=== PATIENT | female | born 1995 | race Caucasian/White ===

== ENCOUNTER 2019-01-15 19:24 | Emergency (ER) | payer OTHER ==
--- NOTE | 2019-01-15 20:14 | ED Physician Documentation ---
PD HPI HEENT - Stated complaint Stated Complaint: DIZZY/NAUSEA - Chief complaint Chief Complaint: Neuro - History obtained from History obtained from: Patient - History of Present Illness Timing - onset: Today (onset when got out of bed of feeling spinning vertigo. Nausea with it. It improves but not gone with holding still. Has some feeling of decreased hearing and pressure in left ear today, and some the past 1-2 days. No fevers nor distinct URI symptoms. No headache. Feeling off balance with walking but feels coordinated with hand movements such as texting on phone.) Timing - duration: Days (1) Timing - details: Abrupt onset, Waxing and waning Location: Left ear, Other (vertigo through the day) Worsens: Position (movement and lying down) Associated symptoms: Congestion (some feeling of ear pressure left), Other (denies new meds, alcohol use, head injury.). No: Fever, Swollen nodes, Headache, Cough Similar symptoms before: Has not had sx before Recently seen: Not recently seen Review of Systems Constitutional: denies: Fever, Myalgias Eyes: denies: Loss of vision, Decreased vision Ears: reports: Loss of hearing (mild on left, feels clogged) Nose: reports: Sinus pressure / pain (mild left frontal). denies: Rhinorrhea / runny nose, Congestion Throat: denies: Sore throat Cardiac: denies: Chest pain / pressure Respiratory: denies: Cough GI: reports: Nausea (when feeling dizzy, better when rested). 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 - Present Medications Home Medications: Ambulatory Orders Medication Instructions Recorded Confirmed Lamotrigine [Lamictal (Green)] 1 ea PO DAILY 12/24/15 05/06/16 Cetirizine [ZyrTEC] 10 mg PO DAILY #15 tablet 01/15/19 Dexamethasone [Decadron] 4 mg PO DAILY #5 tablet 01/15/19 Meclizine [Antivert] 25 mg PO Q6H PRN #30 tablet 01/15/19 - Allergies Allergies/Adverse Reactions: Allergies Allergy/AdvReac Type Severity Reaction Status Date / Time Penicillins Allergy Unknown Verified 05/06/16 20:41 - Social History Does the pt smoke?: No Smoking Status: Never smoker Does the pt drink ETOH?: No Does the pt have substance abuse?: No - Immunizations Immunizations are current?: No Immunizations: No immun - POLST Patient has POLST: No PD ED PE NORMAL - Vitals Vital signs reviewed: Yes - General General: Alert and oriented X 3, No acute distress, Well developed/nourished - HEENT HEENT: PERRL, EOMI (with horizontal nystagmus to the left ), Moist mucous membranes, Pharynx benign. No: Ears normal (right is okay; left with some fluid behind ear but no redness to it.) - Neck Neck: Supple, no meningeal sign, No adenopathy - Cardiac Cardiac: RRR, No murmur - Respiratory Respiratory: Clear bilaterally - Derm Derm: Normal color, Warm and dry - Neuro Neuro: Alert and oriented X 3, chief technical officer 2-12 intact, No motor deficit, No sensory deficit, Normal speech, Other (good hand fine motor movement and normal cere bellar exam with arms/legs. ) Eye Opening: Spontaneous Motor: Obeys Commands Verbal: Oriented GCS Score: 15 Results - Vitals Vitals: Vital Signs - 24 hr 01/15/19 01/15/19 19:27 21:12 Temperature 36.8 C 36.9 C Heart Rate 100 94 Respiratory 16 16 Rate Blood Pressure 132/76 H 125/69 O2 Saturation 100 100 Oxygen O2 Source Room air - Labs Labs: Laboratory Tests 01/15/19 01/15/19 20:33 20:33 WBC 8.2 RBC 4.59 Hgb 13.0 Hct 39.5 MCV 86.0 MCH 28.4 MCHC 33.1 RDW 13.6 Plt Count 240 MPV 8.6 Neut # (Auto) 5.0 Lymph # (Auto) 2.4 Wilkin # (Auto) 0.7 Eos # (Auto) 0.1 Baso # (Auto) 0.0 Absolute Nucleated RBC 0.00 Nucleated RBC % 0.0 Sodium 138 Potassium 3.6 Chloride 101 Carbon Dioxide 27 Anion Gap 10.0 BUN 9 Creatinine 0.6 Estimated GFR (MDRD) 124 Glucose 97 Calcium 9.2 Magnesium 1.8 Total Bilirubin 0.3 AST 17 ALT 18 Alkaline Phosphatase 100 Total Protein 7.7 Albumin 4.3 Globulin 3.4 Albumin/Globulin Ratio 1.3 Lipase 29 PD MEDICAL DECISION MAKING - ED course Complexity details: considered differential (sounds like positional/peripheral vertigo, but with fluid/symptoms to left ear, so presume some allergies or such. Does not appear as ear infection. No focal symptoms otherwise, and is able to coordinate movements of hands well, so not seeming cerebellar per se. ), d/w patient Departure - Departure Disposition: 01 Home, Self Care Clinical Impression: Vertigo Acute labyrinthitis Qualifiers: Laterality: left Qualified Code(s): H83.02 - Labyrinthitis, left ear Condition: Stable Record reviewed to determine appropriate education?: Yes Instructions: ED Labyrinthitis Follow-Up: [facility] [Provider Group] Prescriptions: Cetirizine [ZyrTEC] 10 mg PO DAILY #15 tablet Dexamethasone [Decadron] 4 mg PO DAILY #5 tablet Meclizine [Antivert] 25 mg PO Q6H PRN #30 tablet PRN Reason: Vertigo Comments: Your blood count and electrolytes are good. I would presume this is an inner ear inflammation causing the dizziness. I would have you use some Decadron steroid anti-inflammatory daily for the next several days and cetirizine antihistamine daily for a week or so. This would try to reduce the inflammation and pressure in the inner ear to reduce the dizziness. Use meclizine as needed for the symptoms of the dizziness to lessen it. Recheck if not improving over the next couple of days return sooner if worsening. I do not think it is a bacterial infection and so at do not think antibiotics would be helpful. Continue usual medication. Discharge Date/Time: 01/15/19 21:26
[2019-01-15] MEDS ORDERED: DEXAMETHASONE 10 MG/ML VIAL PO STA (20:26)
[2019-01-15] MEDS ORDERED: CHERRY SYRUP 10 ML UDC PO ONE (20:26)
[2019-01-15] MEDS ORDERED: CETIRIZINE 10 MG TABLET PO STA (20:26)
[2019-01-15] MEDS ORDERED: MECLIZINE 12.5 MG TABLET PO STA (20:26)
[2019-01-15 20:40] LABS: BASOPHILS % (AUTO) 0.4 %; EOSINOPHILS # (AUTO) 0.1 10^3/uL (0.0-0.7); EOSINOPHILS % (AUTO) 0.9 %; LYMPHOCYTES # (AUTO) 2.4 10^3/uL (1.5-3.5); LYMPHOCYTES % (AUTO) 28.9 %; MEAN CORPUSCULAR HEMOGLOBIN 28.4 pg (27.0-31.0); MEAN CORPUSCULAR HGB CONC 33.1 g/dL (32.0-36.0); MEAN PLATELET VOLUME 8.6 fL (7.9-10.8); MONOCYTES # (AUTO) 0.7 10^3/uL (0.0-1.0); MONOCYTES % (AUTO) 8.5 %; NEUTROPHILS % (AUTO) 61.3 %; PLT - PLATELET COUNT 240 10^3/uL (130-450); RED BLOOD COUNT 4.59 10^6/uL (4.20-5.40); RED CELL DISTRIBUTION WIDTH 13.6 % (12.0-15.0); WHITE BLOOD COUNT 8.2 x10^3/uL (4.8-10.8)
[2019-01-15 20:51] LABS: ALBUMIN 4.3 g/dL (3.2-5.5); ALBUMIN/GLOBULIN RATIO 1.3 (1.0-2.2); BILIRUBIN,TOTAL 0.3 mg/dL (0.2-1.0); CALCIUM 9.2 mg/dL (8.5-10.3); CREATININE 0.6 mg/dL (0.4-1.0); MAGNESIUM 1.8 mg/dL (1.7-2.8); TOTAL PROTEIN 7.7 g/dL (6.7-8.2)
[2019-01-15 21:13] VITALS: BP 125/69
== END 2019-01-15 21:26 | disposition home or self-care (01) ==
LOC: ED 19:24
DX: H83.02 Labyrinthitis, left ear (principal); R42 Dizziness and giddiness
CPT/HCPCS: 36415; 80053; 83690; 83735; 85025; 99283; A9270

== ENCOUNTER 2019-02-22 18:12 | Emergency (ER) | payer OTHER ==
--- NOTE | 2019-02-22 18:52 | ED Physician Documentation ---
PD HPI CHEST PAIN - Stated complaint Stated Complaint: CHEST PAIN/SOA - Chief complaint Chief Complaint: Resp - History obtained from History obtained from: Patient - History of Present Illness Timing - onset: Today (She had a sore throat yesterday and lost her voice. She also has a cough that is nonproductive. No fevers. She saw her doctor and was told she has laryngitis. Throat is better, but today she has had chest tightness with shortness of breath. No pedal edema or calf pain. She is on control pills.) Review of Systems Constitutional: denies: Fever, Chills Nose: reports: Rhinorrhea / runny nose Throat: reports: Sore throat Cardiac: reports: Chest pain / pressure. denies: Palpitations, Pedal edema, Calf pain Respiratory: reports: Dyspnea, Cough. 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 - Present Medications Home Medications: Ambulatory Orders Medication Instructions Recorded Confirmed Lamotrigine [Lamictal (Green)] 1 ea PO DAILY 12/24/15 05/06/16 Cetirizine [ZyrTEC] 10 mg PO DAILY #15 tablet 01/15/19 Meclizine [Antivert] 25 mg PO Q6H PRN #30 tablet 01/15/19 dexAMETHasone [Decadron] 4 mg PO DAILY #5 tablet 01/15/19 Albuterol Sulf [Ventolin Hfa 1 - 2 puffs INH Q4HR PRN #1 inhaler 02/22/19 Inhaler] Guaifenesin/Pseudoephedrne HCl 1 each PO BID PRN #20 tab.er.12h 02/22/19 [Mucinex D ER 600-60 mg Tablet] - Allergies Allergies/Adverse Reactions: Allergies Allergy/AdvReac Type Severity Reaction Status Date / Time Penicillins Allergy Unknown Verified 02/22/19 18:27 - Social History Does the pt smoke?: No Smoking Status: Never smoker Does the pt drink ETOH?: No Does the pt have substance abuse?: No - Immunizations Immunizations are current?: No Immunizations: No immun - POLST Patient has POLST: No PD ED PE NORMAL - Vitals Vital signs reviewed: Yes - General General: Alert and oriented X 3, No acute distress - HEENT HEENT: Pharynx benign - Neck Neck: Supple, no meningeal sign, No bony TTP - Cardiac Cardiac: RRR, No murmur - Respiratory Respiratory: No respiratory distress, Other (Slightly diminished throughout without focal findings) - Abdomen Abdomen: Non tender - Derm Derm: Normal color, Warm and dry - Extremities Extremities: No edema, No calf tenderness / cord - Neuro Neuro: Alert and oriented X 3, Normal speech Results - Vitals Vitals: Vital Signs - 24 hr 02/22/19 18:23 Temperature 36.1 C L Heart Rate 78 Respiratory 16 Rate Blood Pressure 113/64 O2 Saturation 100 Oxygen O2 Source Room air - EKG (time done) 1844 Rate: Rate (enter#) (94) Rhythm: NSR [place]: Normal Intervals: Normal [place] QRS: Normal Ischemia: Normal ST segments Computer interpretation: Agree with computer - Labs Labs: Laboratory Tests 02/22/19 02/22/19 19:29 19:29 D-Dimer 358.7 H Troponin I < 0.04 - Rads (name of study) 2v chest Radiology: EMP read contemporaneously (NAD) PD MEDICAL DECISION MAKING - ED course ED course: 23-year-old woman with signs and symptoms most consistent with a viral bronchitis. EKG, chest x-ray, troponin and d-dimer were all negative. Note that our lab has a inordinately low cut off of the d-dimer, most authorities use 500 as a reasonable cut off for d-dimer. Departure - Departure Disposition: 01 Home, Self Care Clinical Impression: Acute viral bronchitis Chest pain Qualifiers: Chest pain type: unspecified Qualified Code(s): R07.9 - Chest pain, unspecified Condition: Good Record reviewed to determine appropriate education?: Yes Instructions: ED Upper Resp Infec No Abx Tx Prescriptions: Albuterol Sulf [Ventolin Hfa Inhaler] 1 - 2 puffs INH Q4HR PRN #1 inhaler PRN Reason: Shortness Of Air/Wheezing Guaifenesin/Pseudoephedrne HCl [Mucinex D ER 600-60 mg Tablet] 1 each PO BID PRN #20 tab.er.12h PRN Reason: congestion Comments: Call your doctor to arrange a follow-up appointment, make the next available appointment. In the interim, return anytime if worse or if new symptoms develop.
--- NOTE | 2019-02-22 19:17 | XRAY Report ---
Reason: shortness of breath, chest tightness, cough Procedure Date: 02/22/2019 Accession Number: [id number] / [id number] Procedure: XR - Chest 2 View X-Ray CPT Code: 11919 FULL RESULT: EXAM: CHEST RADIOGRAPHY EXAM DATE: 02/22/2019 07:01 PM. CLINICAL HISTORY: Shortness of breath, chest tightness, cough. COMPARISON: CHEST 1 VIEW 01/30/2016 12:57 PM. TECHNIQUE: 2 views. FINDINGS: Lungs/Pleura: No focal opacities evident. No pleural effusion. No pneumothorax. Normal volumes. Mediastinum: Heart and mediastinal contours are unremarkable. Other: None. IMPRESSION: Normal 2-view chest radiography. RADIA
[2019-02-22 20:24] VITALS: BP 123/69
== END 2019-02-22 20:24 | disposition home or self-care (01) ==
LOC: ED 18:12
DX: J20.8 Acute bronchitis due to other specified organisms (principal); J04.0 Acute laryngitis; Z79.3 Long term (current) use of hormonal contraceptives
CPT/HCPCS: 36415; 71046; 84484; 85379; 93005; 99283; 99284

== ENCOUNTER 2019-07-27 16:19 | Emergency (ER) | payer MEDICAID, OTHER ==
--- NOTE | 2019-07-27 17:59 | ED Physician Documentation ---
PD HPI SKIN - Stated complaint Stated Complaint: ALLERGIC REACTION CHEST, NECK, BACK - Chief complaint Chief Complaint: Allergic Rx - History obtained from History obtained from: Patient - History of Present Illness Timing - onset: Last night Timing - details: Abrupt onset Location: Face, Neck, Chest, Abdomen, Back Quality / character: Itchy, Burning. No: Swelling, Draining Improved by: Benadryl Associated symptoms: No: Fever, Dyspnea, N/V/D Recently seen: Not recently seen - Additional information Additional information: This is a 23-year-old presents with complaints that she got into an Epson salt bath scented with lavender last night and immediately after getting out she felt just irritated, burning on her skin and then she broke out in a rash on her chest her back underneath her breasts and on her neck she thinks she is having allergic reaction. She went to bed last night not thinking that much of it but then it was much worse this morning. She took a Benadryl although it did was make her sleepy and she still very itchy. Denies shortness of breath, fever, nausea or vomiting. The patient just finished a dose of clindamycin that was prescribed after her wisdom tooth removal. She still taking ibuprofen at thousand milligrams a day but says this is not cutting the pain so she called her dentist today who told her to come to the emergency department for pain medications. Her extraction was on 18 July. 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 - Present Medications Home Medications: Ambulatory Orders Medication Instructions Recorded Confirmed Lamotrigine [Lamictal (Green)] 1 ea PO DAILY 12/24/15 05/06/16 Cetirizine [ZyrTEC] 10 mg PO DAILY #15 tablet 01/15/19 Meclizine [Antivert] 25 mg PO Q6H PRN #30 tablet 01/15/19 dexAMETHasone [Decadron] 4 mg PO DAILY #5 tablet 01/15/19 Albuterol Sulf [Ventolin Hfa 1 - 2 puffs INH Q4HR PRN #1 inhaler 02/22/19 Inhaler] Guaifenesin/Pseudoephedrne HCl 1 each PO BID PRN #20 tab.er.12h 02/22/19 [Mucinex D ER 600-60 mg Tablet] - Allergies Allergies/Adverse Reactions: Allergies Allergy/AdvReac Type Severity Reaction Status Date / Time Penicillins Allergy Unknown Verified 07/27/19 16:25 - Social History Does the pt smoke?: No Smoking Status: Never smoker Does the pt drink ETOH?: No Does the pt have substance abuse?: No - Immunizations Immunizations are current?: No Immunizations: No immun - POLST Patient has POLST: No PD ED PE NORMAL - Vitals Vital signs reviewed: Yes - General General: Alert and oriented X 3, No acute distress, Well developed/nourished - HEENT HEENT: Atraumatic, PERRL, Moist mucous membranes, Other (There is no facial swelling and no erythema or swelling around the sockets of the wisdom teeth.) - Neck Neck: Supple, no meningeal sign, No adenopathy - Respiratory Respiratory: No respiratory distress, Clear bilaterally - Derm Derm: Normal color, Other (There are scattered pinpoint areas of erythema some of which have coalesced on her face neck in the intertriginous zone under her breasts and on her upper back and upper chest. There is no true hives.) - Neuro Neuro: Alert and oriented X 3, Normal speech - Psych Psych: Normal mood, Normal affect Results - Vitals Vitals: Vital Signs - 24 hr 07/27/19 07/27/19 16:23 18:31 Temperature 36.8 C Heart Rate 101 H 98 Respiratory 16 18 Rate Blood Pressure 136/73 H 137/68 H O2 Saturation 100 100 Oxygen O2 Source Room air PD MEDICAL DECISION MAKING - ED course Complexity details: d/w patient ED course: I am not sure if this is more chemical irritant from the Epson salt with lavender in it or it could be reaction to the clindamycin. She is to finish the clindamycin at this point. I have encouraged her to take Benadryl [id number] and adding Pepcid to help with the itching. She was offered steroids which she has declined. She requested pain medications for her dental pain status post extraction 10 days ago. I did not not feel comfortable prescribing narcotics but did give her a hydrocodone here. I explained to her that she should follow-up with her dentist if she requires a further prescription. Return if the rash is worsening, she is short of breath vomiting or other problems. Departure - Departure Disposition: Home, Self Care Clinical Impression: Contact dermatitis Qualifiers: Contact dermatitis type: unspecified Contact dermatitis trigger: other trigger Qualified Code(s): L25.8 - Unspecified contact dermatitis due to other agents Condition: Good Instructions: ED Dermatitis Contact Follow-Up: [facility] [Provider Group] Comments: Continue to take Benadryl 1 tablet every 4 hours. Add Pepcid 20 mg twice a day to help with the itching. Avoid sitting and at this Epson salt bath again. Follow-up with your dentist if he continued to have pain for further pain management. Return if the rash is worsening, you develop difficulty breathing or are vomiting.
[2019-07-27] MEDS ORDERED: HYDROcod/ACETAM 5/325 MG TABLET PO STA (18:25)
[2019-07-27 18:32] VITALS: BP 137/68
== END 2019-07-27 18:45 | disposition home or self-care (01) ==
LOC: ED 16:19
DX: L25.8 Unspecified contact dermatitis due to other agents (principal)
CPT/HCPCS: 99282; A9270

== ENCOUNTER 2019-08-08 14:52 | Emergency (ER) | payer MEDICAID ==
--- NOTE | 2019-08-08 15:25 | ED Physician Documentation ---
PD HPI SKIN - Stated complaint Stated Complaint: ALLERGIC REACTION,FALL LOWER BACK PX - Chief complaint Chief Complaint: Wound - Additional information Additional information: This is a 23-year-old female presents with a rash. Patient was on clindamycin due to a dental infection in late June, she finished 7 days of clindamycin, and once completing this in the end of June she began developing some red spots. This started on her neck and spread throughout her body. They are somewhat itchy, raised and appears somewhat flaky. She was put on dexamethasone and that temporarily improve the symptoms on her face but after she stopped this 5 daysShe had recurrence of her rash. She denies any lesions in her mouth, genitals, or eyes. No fever, no chills. She is not taking any antibiotics Currently. She denies any changes to soaps or detergents in the house. No history of allergies or autoimmune conditions As a secondary minor complaint pt states she tripped earlier and has some soreness on the side of her lateral left back. No LOC. 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 - Present Medications Home Medications: Ambulatory Orders Medication Instructions Recorded Confirmed Lamotrigine [Lamictal (Green)] 1 ea PO DAILY 12/24/15 05/06/16 Cetirizine [ZyrTEC] 10 mg PO DAILY #15 tablet 01/15/19 Meclizine [Antivert] 25 mg PO Q6H PRN #30 tablet 01/15/19 dexAMETHasone [Decadron] 4 mg PO DAILY #5 tablet 01/15/19 Albuterol Sulf [Ventolin Hfa 1 - 2 puffs INH Q4HR PRN #1 inhaler 02/22/19 Inhaler] Guaifenesin/Pseudoephedrne HCl 1 each PO BID PRN #20 tab.er.12h 02/22/19 [Mucinex D ER 600-60 mg Tablet] dexAMETHasone [Decadron] 4 mg PO DAILY #5 tablet 07/31/19 hydrOXYzine HCl [Hydroxyzine HCl] 50 mg PO Q8H PRN #12 tablet 07/31/19 Clobetasol 0.05% Oint [Temovate 1 applic TOP BID 14 Days #1 tube 08/08/19 0.05% Oint] Hydrocortisone 1 applic TP BID #1 tube 08/08/19 - Allergies Allergies/Adverse Reactions: Allergies Allergy/AdvReac Type Severity Reaction Status Date / Time clindamycin Allergy Itching Verified 08/08/19 14:57 Penicillins Allergy Unknown Verified 08/08/19 14:57 - Social History Does the pt smoke?: No Smoking Status: Never smoker Does the pt drink ETOH?: No Does the pt have substance abuse?: No - Immunizations Immunizations are current?: No Immunizations: No immun - POLST Patient has POLST: No PD ED PE NORMAL - Vitals Vital signs reviewed: Yes - General General: Alert and oriented X 3, No acute distress - HEENT HEENT: PERRL, Other (No mucosal lesions) - Neck Neck: Supple, no meningeal sign - Cardiac Cardiac: RRR - Respiratory Respiratory: No respiratory distress - Abdomen Abdomen: Non distended - Derm Derm: Warm and dry, Other (Erythematous papules and plaques that approach confluence in places and are scattered diffusely. There is scaling/flaking over them. 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 No red flags for more dangerous cause - no fever, mucous membrane involvement, abdominal pain, etc. It would be very atypical for an allergic reaction both in phenotype and because it has worsened for weeks despite stopping the offending agent. I prescribed topical steroids, recommended PCP and derm follow up, and reviewed return precautions. Regarding her back discomfort, she has no external signs of trauma, no midline back tenderness, and very mild tenderness in the lateral paraspinous musculature. She states that she would not have come in for this pain unless she also had wanted her rash checked. I reviewed supportive care and she was discharged home. Departure - Departure Disposition: Home, Self Care Clinical Impression: Guttate psoriasis Condition: Good Instructions: ED Psoriasis Prescriptions: Clobetasol 0.05% Oint [Temovate 0.05% Oint] 1 applic TOP BID 14 Days #1 tube Hydrocortisone 1 applic TP BID #1 tube Comments: You appear to have psoriasis. 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 You may use the topical steroids in the meantime. If you are developing fever, signs of infection, or other new concerning symptoms return to the emergency department. Discharge Date/Time: 08/08/19 15:55
[2019-08-08] MEDS ORDERED: ACETAMINOPHEN 325 MG TABLET PO STA (15:49)
[2019-08-08 15:56] VITALS: BP 130/80
== END 2019-08-08 15:55 | disposition home or self-care (01) ==
LOC: ED 14:52
DX: L40.4 Guttate psoriasis (principal); M54.5 Low back pain; W10.9XXA Fall (on) (from) unspecified stairs and steps, initial encounter
CPT/HCPCS: 99282; 99284; A9270

== ENCOUNTER 2019-10-31 14:00 | Emergency (ER) | payer MEDICAID ==
[2019-10-31 14:11] VITALS: BP 139/78
--- NOTE | 2019-10-31 14:25 | ED Physician Documentation ---
PD HPI URI - Stated complaint Stated Complaint: SOA/COUGH - Chief complaint Chief Complaint: Resp - History obtained from History obtained from: Patient - History of Present Illness Timing - onset: Other (She is been sick for about 10 days with productive cough, mostly green sputum with blood-tinged. Now short of breath over the last day. No fevers. No history of pulmonary disease such as asthma or pneumonia. 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 OPERATOR: section - Present Medications Home Medications: Ambulatory Orders Medication Instructions Recorded Confirmed Lamotrigine [Lamictal (Green)] 1 ea PO DAILY 12/24/15 05/06/16 Cetirizine [ZyrTEC] 10 mg PO DAILY #15 tablet 01/15/19 Meclizine [Antivert] 25 mg PO Q6H PRN #30 tablet 01/15/19 dexAMETHasone [Decadron] 4 mg PO DAILY #5 tablet 01/15/19 Albuterol Sulf [Ventolin Hfa 1 - 2 puffs INH Q4HR PRN #1 inhaler 02/22/19 Inhaler] Guaifenesin/Pseudoephedrne HCl 1 each PO BID PRN #20 tab.er.12h 02/22/19 [Mucinex D ER 600-60 mg Tablet] dexAMETHasone [Decadron] 4 mg PO DAILY #5 tablet 07/31/19 hydrOXYzine HCL [Hydroxyzine HCl] 50 mg PO Q8H PRN #12 tablet 07/31/19 Clobetasol 0.05% Oint [Temovate 1 applic TOP BID 14 Days #1 tube 08/08/19 0.05% Oint] Hydrocortisone 1 applic TP BID #1 tube 08/08/19 Albuterol Sulf [Ventolin Hfa 1 - 2 puffs INH Q4HR PRN #1 inhaler 10/31/19 Inhaler] Doxycycline Hyclate 100 mg PO BID #14 capsule 10/31/19 Meloxicam [Mobic] 7.5 mg PO BID PRN #20 tablet 10/31/19 guaiFENesin/CODEINE [Robitussin AC] 5 - 10 ml PO Q6H PRN #120 ml 10/31/19 - Allergies Allergies/Adverse Reactions: Allergies Allergy/AdvReac Type Severity Reaction Status Date / Time clindamycin Allergy Itching Verified 10/31/19 14:11 Penicillins Allergy Unknown Verified 10/31/19 14:11 - Social History Does the pt smoke?: No Smoking Status: Never smoker Does the pt drink ETOH?: No Does the pt have substance abuse?: No - Immunizations Immunizations are current?: No Immunizations: No immun - POLST Patient has POLST: No PD ED PE NORMAL - Vitals Vital signs reviewed: Yes - General General: Alert and oriented X 3, No acute distress - HEENT HEENT: PERRL, EOMI, Dentition benign - Neck Neck: Supple, no meningeal sign, No bony TTP - Cardiac Cardiac: RRR, No murmur - Respiratory Respiratory: No respiratory distress, Other (Mildly wheezy and rhonchorous throughout; Slightly diminished at the right base) - Abdomen Abdomen: Non tender - Derm Derm: Normal color, Warm and dry, No rash - Extremities Extremities: No deformity, No tenderness to palpate, No edema, No calf tenderness / cord - Neuro Neuro: Alert and oriented X 3, Normal speech Results - Vitals Vitals: Vital Signs - 24 hr 10/31/19 14:08 Temperature 36.7 C Heart Rate 81 Respiratory 17 Rate Blood Pressure 139/78 H O2 Saturation 99 Oxygen O2 Source Room air PD MEDICAL DECISION MAKING - ED course ED course: 23-year-old woman with bronchitis, potentially a right basilar pneumonia Departure - Departure Disposition: 01 Home, Self Care Clinical Impression: Bronchitis Pneumonia Qualifiers: Laterality: right Lung location: lower lobe of lung Condition: Good Record reviewed to determine appropriate education?: Yes Instructions: ED Bronchitis Asthmatic Prescriptions: Albuterol Sulf [Ventolin Hfa Inhaler] 1 - 2 puffs INH Q4HR PRN #1 inhaler PRN Reason: Shortness Of Air/Wheezing Doxycycline Hyclate 100 mg PO BID #14 capsule guaiFENesin/CODEINE [Robitussin AC] 5 - 10 ml PO Q6H PRN #120 ml PRN Reason: Cough Meloxicam [Mobic] 7.5 mg PO BID PRN #20 tablet PRN Reason: Pain Comments: I sent the prescriptions electronically to [facility] in [place]. Follow-up w ith your doctor in 1 week if not better. Return for new or worsening symptoms. Your blood pressure was elevated today on check into the emergency department. This does not mean that you have hypertension, it is a common phenomenon to come to the emergency department and have elevated blood pressure. I recommend that you see your primary care physician within the week to have it rechecked when you are feeling better.
== END 2019-10-31 14:35 | disposition home or self-care (01) ==
LOC: ED 14:00
DX: J18.9 Pneumonia, unspecified organism (principal); J40 Bronchitis, not specified as acute or chronic; R03.0 Elevated blood-pressure reading, without diagnosis of hypertension
CPT/HCPCS: 99283; 99284

== ENCOUNTER 2019-11-10 21:47 | Emergency (ER) | payer MEDICAID ==
[2019-11-10 21:54] VITALS: BP 125/86
== END 2019-11-11 00:57 | disposition left against medical advice (07) ==
LOC: ED 21:47
DX: Z53.21 Procedure and treatment not carried out due to patient leaving prior to being seen by health care provider (principal)

== ENCOUNTER 2019-11-16 16:54 | Emergency (ER) | payer MEDICAID ==
--- NOTE | 2019-11-16 18:30 | ED Physician Documentation ---
PD HPI CHEST PAIN - Stated complaint Stated Complaint: LT RIB PX - Chief complaint Chief Complaint: General - History obtained from History obtained from: Patient - History of Present Illness Timing - onset: How many weeks ago (1) Timing - onset during: Light activity, Other (coughing hard and repetitively) Timing - duration: Weeks (1) Timing - details: Gradual onset (Has had a cough and "bronchitis" symptoms for about a week and had onset of the pain in the left lateral ribs. This has persisted you have another cough is lessened. Hurts for movement and deep breathing. No fevers), Still present Quality: Aching, Sharp. No: Pressure, Tightness Location: Left chest (lateral lower ribs area) Radiation: No: Back, Abdominal Associated symptoms: Cough. 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) HEENT: None Psych: Depression, Anxiety, Panic attacks Musculoskeletal: Chronic back pain Derm: None - Past Surgical History Past 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 - Present Medications Home Medications: Ambulatory Orders Medication Instructions Recorded Confirmed Lamotrigine [Lamictal (Green)] 1 ea PO DAILY 12/24/15 05/06/16 hydrOXYzine HCL [Hydroxyzine HCl] 50 mg PO Q8H PRN #12 tablet 07/31/19 Hydrocortisone 1 applic TP BID #1 tube 08/08/19 FLUoxetine [PROzac] 40 mg PO DAILY 11/16/19 11/16/19 Guanfacine HCl 1 mg PO 11/16/19 Hydrocodone/Acetaminophen 1 each PO Q6H PRN #18 tablet 11/16/19 [Hydrocodon-Acetaminophen 5-325] Naproxen 500 mg PO BID #20 tablet 11/16/19 dexAMETHasone [Decadron] 4 mg PO DAILY #5 tablet 11/16/19 - Allergies Allergies/Adverse Reactions: Allergies Allergy/AdvReac Type Severity Reaction Status Date / Time clindamycin Allergy Itching Verified 11/16/19 17:24 Penicillins Allergy Unknown Verified 11/16/19 17:24 - Social History Does the pt smoke?: No Smoking Status: Never smoker Does the pt drink ETOH?: No Does the pt have substance abuse?: No - Immunizations Immunizations are current?: No Immunizations: No immun - POLST Patient has POLST: No PD ED PE NORMAL - Vitals Vital signs reviewed: Yes - General General: Alert and oriented X 3, Well developed/nourished - HEENT HEENT: Ears normal, Moist mucous membranes, Pharynx benign - Neck Neck: Supple, no meningeal sign, No adenopathy - Cardiac Cardiac: RRR, No murmur, Other (Tender in the lower left midaxillary line approximately ribs 9 or 10. No obvious deformity. No crepitance felt in the area.) - Respiratory Respiratory: Clear bilaterally - Back Back: No CVA TTP, No spinal TTP - Derm Derm: Normal color, Warm and dry, No rash - Extremities Extremities: No tenderness to palpate, Normal ROM s pain, No edema, No calf tenderness / cord - Neuro Neuro: Alert and oriented X 3, No motor deficit, Normal speech Results - Vitals Vitals: Vital Signs - 24 hr 11/16/19 11/16/19 17:21 19:26 Temperature 37.2 C Heart Rate 100 98 Respiratory 16 18 Rate Blood Pressure 128/71 136/80 H O2 Saturation 99 100 Oxygen O2 Source Room air - Rads (name of study) chest xray Radiology: Prelim report reviewed (no acute process), See rad report PD MEDICAL DECISION MAKING - ED course Complexity details: considered differential (Has had a cough and "bronchitis" symptoms for about a week and had onset of the pain in the left lateral ribs. This has persisted you have another cough is lessened. Hurts for movement and deep breathing. No fevers), d/w patient ED course: Seems like musculoskeletal chest wall pain from the previous cough she had had. Chest x-ray is clear with any signs of effusion nor infiltrate nor rib fracture. Departure - Departure Disposition: 01 Home, Self Care Clinical Impression: Left-sided chest wall pain Condition: Stable Record reviewed to determine appropriate education?: Yes Instructions: ED Strain Chest Wall Prescriptions: dexAMETHasone [Decadron] 4 mg PO DAILY #5 tablet Hydrocodone/Acetaminophen [Hydrocodon-Acetaminophen 5-325] 1 each PO Q6H PRN #18 tablet PRN Reason: pain Naproxen 500 mg PO BID #20 tablet Comments: Your x-ray appears normal without any signs of rib injury nor problems such as pneumonia or fluid. I presume its muscular pain that is hurting precipitated by the cough and you it had. Use anti-inflammatories of naproxen and Decadron to help with the process of it. Add Tylenol or hydrocodone as needed for pain. Stay well-hydrated. Recheck if not improving well over the next several days and resolved by a week. Return if worse symptoms. Discharge Date/Time: 11/16/19 19:58
[2019-11-16] MEDS ORDERED: HYDROcod/ACETAM 5/325 MG TABLET PO STA (18:46)
[2019-11-16 19:27] VITALS: BP 136/80
--- NOTE | 2019-11-16 20:01 | XRAY Report ---
Reason: left rib pain/chest pain; coughing Procedure Date: 11/16/2019 Accession Number: [id number] / [id number] Procedure: XR - Chest 2 View X-Ray CPT Code: 47889 Final Report FULL RESULT: EXAM: CHEST RADIOGRAPHY EXAM DATE: 11/16/2019 07:19 PM. CLINICAL HISTORY: Left rib pain/chest pain; coughing. COMPARISON: CHEST 2 VIEW 02/22/2019 6:52 PM. TECHNIQUE: 2 views. FINDINGS: LUNGS: The lungs are clear. PLEURA: No significant pleural effusion. No clinically significant pneumothorax. MEDIASTINUM: The cardiomediastinal silhouette is unremarkable. BONES: No suspicious osseous lesions. IMPRESSION: No acute cardiopulmonary abnormality. RADIA
== END 2019-11-16 19:58 | disposition home or self-care (01) ==
LOC: ED 16:54
DX: R07.89 Other chest pain (principal); R05 Cough
CPT/HCPCS: 71046; 99283; 99284; A9270

== ENCOUNTER 2020-01-02 08:56 | Emergency (ER) | payer MEDICAID ==
[2020-01-02] MEDS ORDERED: HYDROcod/ACETAM 5/325 MG TABLET PO STA (09:16)
--- NOTE | 2020-01-02 09:18 | ED Physician Documentation ---
History of Present Illness - Stated complaint Stated Complaint: L SIDE PX - Chief complaint Chief Complaint: General - History obtained from History obtained from: Patient (24-year-old woman had bronchitis a couple of months ago, developed some pleuritic pain at that time. She is kind of had frequent problems with this, and over the last 4 days has had increased nonproductive cough, mild shortness of breath. No fevers. She denies leg sw elling or pedal edema or calf pain. No recent travel. This morning her pain which is in the left ribs got much worse while sneezing.) Review of Systems Constitutional: denies: Fever, Chills Cardiac: reports: Chest pain / pressure. denies: Palpitations, Pedal edema, Calf pain Respiratory: reports: Cough. 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: section - Present Medications Home Medications: Ambulatory Orders Medication Instructions Recorded Confirmed Lamotrigine [Lamictal (Green)] 1 ea PO DAILY 12/24/15 05/06/16 hydrOXYzine HCL [Hydroxyzine HCl] 50 mg PO Q8H PRN #12 tablet 07/31/19 Hydrocortisone 1 applic TP BID #1 tube 08/08/19 FLUoxetine [PROzac] 40 mg PO DAILY 11/16/19 11/16/19 Guanfacine HCl 1 mg PO 11/16/19 Hydrocodone/Acetaminophen 1 each PO Q6H PRN #18 tablet 11/16/19 [Hydrocodon-Acetaminophen 5-325] Naproxen 500 mg PO BID #20 tablet 11/16/19 dexAMETHasone [Decadron] 4 mg PO DAILY #5 tablet 11/16/19 Albuterol Sulf [Ventolin Hfa 1 - 2 puffs INH Q4HR PRN #1 inhaler 01/02/20 Inhaler] Doxycycline Hyclate 100 mg PO BID #20 capsule 01/02/20 Hydrocodone/Acetaminophen 1 - 2 each PO Q6H PRN #14 tablet 01/02/20 [Hydrocodon-Acetaminophen 5-325] - Allergies Allergies/Adverse Reactions: Allergies Allergy/AdvReac Type Severity Reaction Status Date / Time clindamycin Allergy Itching Verified 01/02/20 09:01 Penicillins Allergy Unknown Verified 01/02/20 09:01 - Social History Does the pt smoke?: No Smoking Status: Never smoker Does the pt drink ETOH?: No Does the pt have substance abuse?: No - Immunizations Immunizations are current?: No Immunizations: No immun - POLST Patient has POLST: No PD ED PE NORMAL - Vitals Vital signs reviewed: Yes - General General: Alert and oriented X 3, No acute distress, Well developed/nourished - HEENT HEENT: PERRL, EOMI - Neck Neck: Supple, no meningeal sign, No bony TTP - Cardiac Cardiac: RRR, No murmur - Respiratory Respiratory: No respiratory distress, Clear bilaterally - Abdomen Abdomen: Non tender - Back Back: No CVA TTP, No spinal TTP - Derm Derm: Normal color, Warm and dry - Extremities Extremities: No edema, No calf tenderness / cord - Psych Psych: Normal mood Results - Vitals Vitals: Vital Signs - 24 hr 01/02/20 09:01 Temperature 36.8 C Heart Rate 92 Respiratory 18 Rate Blood Pressure 133/59 H O2 Saturation 98 Oxygen O2 Source Room air - Rads (name of study) 2 view chest x-ray Radiology: EMP read contemporaneously (Minimal bibasilar interstitial opacity, atelectasis versus infiltrate.) PD MEDICAL DECISION MAKING - ED course ED course: 24-year-old woman with a recurrent left pleuritic rib pain, seems most consistent with an intercostal muscle tear from coughing. PE is considered, but she has had several visits related to this, negative d-dimer in the past. Really nothing to suggest PE. The recurrent visits make me a little worried about drug-seeking, but on most of the visit she is not getting narcotics. 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 Departure - Departure Disposition: 01 Home, Self Care Clinical Impression: Left-sided chest wall pain Pneumonia Qualifiers: Pneumonia type: due to unspecified organism Laterality: bilateral Lung location: unspecified part of lung Qualified Code(s): J18.9 - Pneumonia, unspecified organism Condition: Good Record reviewed to determine appropriate education?: Yes Instructions: Pneumonia Dc, ED Strain Chest Wall Prescriptions: Albuterol Sulf [Ventolin Hfa Inhaler] 1 - 2 puffs INH Q4HR PRN #1 inhaler PRN Reason: Shortness Of Air/Wheezing Doxycycline Hyclate 100 mg PO BID #20 capsule Hydrocodone/Acetaminophen [Hydrocodon-Acetaminophen 5-325] 1 - 2 each PO Q6H PRN #14 tablet PRN Reason: pain Comments: Stay out of the sun while on the antibiotics. You do need to self quarantine and self isolate, details are available at: https://www.cdc.gov/coronavirus/2019-ncov/prevent- getting-sick/social-distancing.html Return for new or worsening symptoms.
--- NOTE | 2020-01-02 09:40 | XRAY Report ---
Reason: chest pain cough Procedure Date: 01/02/2020 Accession Number: [id number] / [id number] Procedure: XR - Chest 2 View X-Ray CPT Code: 22353 Final Report FULL RESULT: EXAM: CHEST RADIOGRAPHY EXAM DATE: 01/02/2020 09:28 AM. CLINICAL HISTORY: Chest pain cough. COMPARISON: CHEST 2 VIEW 11/16/2019 7:03 PM CHEST 2 VIEW 02/22/2019 6:52 PM. TECHNIQUE: 2 views. FINDINGS: Lungs/Pleura: Minimal basal interstitial opacity, probably atelectasis, versus infiltrate. No focal pulmonary consolidation, pleural effusion, or pneumothorax. Mediastinum: Heart and mediastinal contours are unremarkable. Other: None. IMPRESSION: Minimal basal interstitial opacity, probably atelectasis, versus infiltrate. RADIA
[2020-01-02] MEDS ORDERED: DOXYCYCLINE 100 MG TABLET PO STA (09:44)
[2020-01-02 09:56] VITALS: BP 125/62
== END 2020-01-02 09:56 | disposition home or self-care (01) ==
LOC: ED 08:56
DX: J18.9 Pneumonia, unspecified organism (principal); R07.89 Other chest pain; F32.9 Major depressive disorder, single episode, unspecified; F41.0 Panic disorder [episodic paroxysmal anxiety]
CPT/HCPCS: 71046; 87635; 99283; 99284; A9270; 81599

== ENCOUNTER 2020-05-30 08:00 | Outpatient (CLI) | payer MEDICAID ==
[2020-05-30 21:42] LABS: CANDIDA GROUP DNA NEGATIVE (NEGATIVE); CANDIDA KRUSEI DNA NEGATIVE (NEGATIVE); TRICHOMONAS VAGINALIS DNA NEGATIVE (NEGATIVE)
== END 2020-05-30 23:59 | disposition home or self-care (01) ==
LOC: LAB.R 08:00
PROVIDERS: ATTEND Nurse Practitioner Obstetrics & Gynecology
DX: N76.0 Acute vaginitis (principal); F33.2 Major depressive disorder, recurrent severe without psychotic features; Z11.3 Encounter for screening for infections with a predominantly sexual mode of transmission
CPT/HCPCS: 36415; 80053; 80061; 81599; 82306; 82607; 82947; 83721; 84436; 84443; 84480; 86592; 86695; 86696; 86803; 87389; 87661; 87801

== ENCOUNTER 2020-05-30 08:22 | Outpatient (CLI) | payer MEDICAID ==
[2020-05-30 09:00] LABS: ALBUMIN 3.9 g/dL (3.2-5.5); ALKALINE PHOSPHATASE 109 IU/L (42-121); ALT ALANINE AMINOTRANSFERASE 30 IU/L (10-60); AST ASPARTATE AMINOTRANSFERASE 26 IU/L (10-42); BILIRUBIN,TOTAL 0.6 mg/dL (0.2-1.0); BUN - BLOOD UREA NITROGEN 9 mg/dL (6-20); CALCIUM 9.3 mg/dL (8.5-10.3); CARBON DIOXIDE - CO2 26 mmol/L (21-32); CHLORIDE 102 mmol/L (101-111); CHOLESTEROL 226 mg/dL; CREATININE 0.7 mg/dL (0.4-1.0); GLUCOSE 98 mg/dL (70-100); GLUCOSE,FASTING 98 mg/dL (70-100); HDL CHOLESTEROL 57 mg/dL; LDL CHOLESTEROL,CALCULATED 134 mg/dL; LDL/HDL RATIO 2.4 (<4.4); SODIUM 139 mmol/L (135-145); TOTAL PROTEIN 7.7 g/dL (6.7-8.2); VLDL CHOLESTEROL 35 mg/dL
[2020-05-30 09:30] LABS: T4 (THYROXINE) 10.29 ug/dL (6.09-12.23)
[2020-05-30 09:32] LABS: THYROID STIMULATING HORMONE 3.19 uIU/mL (0.34-5.60)
[2020-05-30 09:39] LABS: TOTAL T3 1.5 ng/mL (0.87-1.78)
[2020-05-31 08:17] LABS: HIV AG/AB 4TH GEN NON-REACTIVE (NON-REACTIVE)
[2020-05-31 13:56] LABS: HEPATITIS C ANTIBODY NON-REACTIVE (NON-REACTIVE)
[2020-06-03 13:26] LABS: HSV 1 IGG TYPE SPECIFIC AB <0.90 index; HSV 2 IGG TYPE SPECIFIC AB <0.90 index
== END 2020-05-30 08:23 | disposition home or self-care (01) ==
LOC: LAB 08:22
PROVIDERS: ATTEND Nurse Practitioner Family
DX: F33.2 Major depressive disorder, recurrent severe without psychotic features (principal); Z11.3 Encounter for screening for infections with a predominantly sexual mode of transmission
CPT/HCPCS: 36415; 80053; 80061; 81599; 82306; 82607; 82947; 83721; 84436; 84443; 84480; 86695; 86696; 86803; 87389

== ENCOUNTER 2020-10-30 08:00 | Outpatient (CLI) | payer MEDICAID ==
[2020-10-30 18:16] LABS: BASOPHILS % (AUTO) 0.5 %; EOSINOPHILS # (AUTO) 0.1 10^3/uL (0.0-0.7); EOSINOPHILS % (AUTO) 0.8 %; HGB - HEMOGLOBIN 12.5 g/dL (12.0-16.0); LYMPHOCYTES # (AUTO) 2.6 10^3/uL (1.5-3.5); LYMPHOCYTES % (AUTO) 35.2 %; MEAN CORPUSCULAR HEMOGLOBIN 26.9 pg (27.0-31.0); MEAN CORPUSCULAR HGB CONC 31.3 g/dL (32.0-36.0); MEAN CORPUSCULAR VOLUME 86.2 fL (81.0-99.0); MEAN PLATELET VOLUME 11.7 fL (7.9-10.8); MONOCYTES # (AUTO) 0.7 10^3/uL (0.0-1.0); MONOCYTES % (AUTO) 9.8 %; NEUTROPHILS # (AUTO) 3.9 10^3/uL (1.5-6.6); NEUTROPHILS % (AUTO) 53.4 %; PLT - PLATELET COUNT 304 10^3/uL (130-450); RED BLOOD COUNT 4.64 10^6/uL (4.20-5.40); RED CELL DISTRIBUTION WIDTH 13.1 % (12.0-15.0); WHITE BLOOD COUNT 7.3 x10^3/uL (4.8-10.8)
[2020-10-30 18:32] LABS: CALCIUM 9.5 mg/dL (8.5-10.3); CREATININE 0.7 mg/dL (0.4-1.0)
== END 2020-10-30 23:59 | disposition home or self-care (01) ==
LOC: LAB.N 08:00
PROVIDERS: ATTEND Physician Assistant Medical
DX: F41.9 Anxiety disorder, unspecified (principal); F32.9 Major depressive disorder, single episode, unspecified
CPT/HCPCS: 36415; 80048; 83735; 84443; 85025

== ENCOUNTER 2021-11-19 08:00 | Outpatient (CLI) | payer MEDICAID | END 2021-11-19 23:59 | disposition home or self-care (01) | LOC: LAB.N 08:00 | PROVIDERS: ATTEND Registered Nurse | DX: R19.7 Diarrhea, unspecified (principal) | CPT/HCPCS: 81599; 83993; 87045; 87177; 87209; 87329; 87427; 87449; 87493 ==

== ENCOUNTER 2022-12-13 14:10 | Outpatient (CLI) | payer MEDICAID ==
[2022-12-13 14:23] LABS: BASOPHILS % (AUTO) 0.6 %; EOSINOPHILS # (AUTO) 0.1 10^3/uL (0.0-0.7); EOSINOPHILS % (AUTO) 1.2 %; HCT - HEMATOCRIT 38.5 % (37.0-47.0); HGB - HEMOGLOBIN 11.9 g/dL (12.0-16.0); LYMPHOCYTES # (AUTO) 2.9 10^3/uL (1.5-3.5); LYMPHOCYTES % (AUTO) 42.5 %; MEAN CORPUSCULAR HEMOGLOBIN 26.2 pg (27.0-31.0); MEAN CORPUSCULAR HGB CONC 30.9 g/dL (32.0-36.0); MEAN CORPUSCULAR VOLUME 84.6 fL (81.0-99.0); MEAN PLATELET VOLUME 10.4 fL (7.9-10.8); MONOCYTES # (AUTO) 0.8 10^3/uL (0.0-1.0); MONOCYTES % (AUTO) 11.4 %; NEUTROPHILS % (AUTO) 44.2 %; PLT - PLATELET COUNT 278 10^3/uL (130-450); RED BLOOD COUNT 4.55 10^6/uL (4.20-5.40); RED CELL DISTRIBUTION WIDTH 14.4 % (12.0-15.0); WHITE BLOOD COUNT 6.8 x10^3/uL (4.8-10.8)
[2022-12-13 14:46] LABS: ALBUMIN 3.9 g/dL (3.2-5.5); ALBUMIN/GLOBULIN RATIO 1.1 (1.0-2.2); ALKALINE PHOSPHATASE 90 IU/L (42-121); ALT ALANINE AMINOTRANSFERASE 19 IU/L (10-60); AST ASPARTATE AMINOTRANSFERASE 19 IU/L (10-42); BILIRUBIN,TOTAL 0.3 mg/dL (0.2-1.0); BUN - BLOOD UREA NITROGEN 10 mg/dL (6-20); CALCIUM 9.6 mg/dL (8.5-10.3); CARBON DIOXIDE - CO2 24 mmol/L (21-32); CHLORIDE 106 mmol/L (101-111); CHOL/HDL RATIO 3.3 (<4.4); CHOLESTEROL 204 mg/dL; CREATININE 0.7 mg/dL (0.4-1.0); GFR - MDRD 100 (>89); GLUCOSE 96 mg/dL (70-100); HDL CHOLESTEROL 62 mg/dL; LDL CHOLESTEROL,CALCULATED 120 mg/dL; LDL/HDL RATIO 1.9 (<4.4); POTASSIUM 3.5 mmol/L (3.5-5.0); SODIUM 138 mmol/L (135-145); TOTAL PROTEIN 7.5 g/dL (6.7-8.2); TRIGLYCERIDES 111 mg/dL; VLDL CHOLESTEROL 22 mg/dL
[2022-12-13 14:53] LABS: THYROID STIMULATING HORMONE 2.29 uIU/mL (0.34-5.60)
[2022-12-13 14:55] LABS: FREE T4 (FREE THYROXINE) 0.98 ng/dL (0.58-1.64)
[2022-12-13 15:06] LABS: ESTIMATED AVERAGE GLUCOSE 100 mg/dL (70-100); HEMOGLOBIN A1c% 5.1 % (4.27-6.07)
== END 2022-12-13 14:11 | disposition home or self-care (01) ==
LOC: LAB 14:10
PROVIDERS: ATTEND Nurse Practitioner
DX: N92.6 Irregular menstruation, unspecified (principal)
CPT/HCPCS: 36415; 80053; 80061; 83036; 83721; 84439; 84443; 85025

== ENCOUNTER 2024-01-26 08:45 | Outpatient (CLI) | payer MEDICAID ==
[2024-01-26 11:43] LABS: BASOPHILS # (AUTO) 0.1 10^3/uL (0.0-0.1); BASOPHILS % (AUTO) 0.9 %; EOSINOPHILS # (AUTO) 0.1 10^3/uL (0.0-0.7); EOSINOPHILS % (AUTO) 0.9 %; HCT - HEMATOCRIT 43.9 % (37.0-47.0); LYMPHOCYTES # (AUTO) 2.1 10^3/uL (1.5-3.5); LYMPHOCYTES % (AUTO) 36.4 %; MEAN CORPUSCULAR HEMOGLOBIN 29.1 pg (27.0-31.0); MEAN CORPUSCULAR HGB CONC 31.9 g/dL (32.0-36.0); MEAN CORPUSCULAR VOLUME 91.3 fL (81.0-99.0); MEAN PLATELET VOLUME 11.7 fL (7.9-10.8); MONOCYTES # (AUTO) 0.5 10^3/uL (0.0-1.0); MONOCYTES % (AUTO) 8.3 %; NEUTROPHILS % (AUTO) 53.3 %; PLT - PLATELET COUNT 296 10^3/uL (130-450); RED BLOOD COUNT 4.81 10^6/uL (4.20-5.40); WHITE BLOOD COUNT 5.7 x10^3/uL (4.8-10.8)
[2024-01-26 12:13] LABS: ALBUMIN 4.3 g/dL (3.2-5.5); ALBUMIN/GLOBULIN RATIO 1.3 (1.0-2.2); BILIRUBIN,TOTAL 0.4 mg/dL (0.2-1.0); CALCIUM 10.1 mg/dL (8.5-10.3); CREATININE 0.8 mg/dL (0.6-1.3); POTASSIUM 3.9 mmol/L (3.5-4.5); TOTAL PROTEIN 7.6 g/dL (6.4-8.9)
[2024-01-26 12:15] LABS: THYROID STIMULATING HORMONE 1.94 uIU/mL (0.34-5.60)
[2024-01-26 12:19] LABS: FERRITIN 11.7 ng/mL (11.0-306.8)
== END 2024-01-26 09:00 | disposition home or self-care (01) ==
LOC: LAB.N 08:45
PROVIDERS: ATTEND Family Medicine
DX: D50.9 Iron deficiency anemia, unspecified (principal); N92.0 Excessive and frequent menstruation with regular cycle; R07.9 Chest pain, unspecified
CPT/HCPCS: 36415; 80053; 82728; 83540; 84443; 84466; 85025; 85379

== ENCOUNTER 2024-01-26 12:58 | Emergency (ER) | payer MEDICAID ==
[2024-01-26 13:14] VITALS: O2SAT 100
[2024-01-26] MEDS ORDERED: iohexoL-300 100 ML VIAL ONE (14:26)
[2024-01-26] MEDS: ALBUTEROL 1 PUFF INH STA (14:43)
[2024-01-26] MEDS: SODIUM CHLORIDE 0.9% 1,000 ML IV STA (14:45)
--- NOTE | 2024-01-26 15:01 | ED Physician Documentation ---
PD HPI DYSPNEA - Stated complaint Stated Complaint: SENT BY URGENTCARE - Chief complaint Chief Complaint: Resp - History obtained from History obtained from: Patient - History of Present Illness Timing - onset: How many months ago (1-2) Timing - onset during: Light activity Timing - duration: Months Timing - details: Gradual onset, Intermittant, Waxing and waning Inciting event(s): No: URI, Immobilization/travel Improved by: Rest Worsened by: Exertion, Coughing. No: Laying flat Associated symptoms: Cough (mild). No: Fever, Wheezing, Bilateral edema, Unilateral edema (has noted some pain in left calf for few days without swelling.) Similar symptoms before: Has not had sx before Recently seen: Clinic (Walk In today) Review of Systems Constitutional: denies: Fever, Chills, Myalgias Nose: reports: Congestion Throat: denies: Sore throat Cardiac: reports: Chest pain / pressure. 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) HEENT: None Psych: Depression, Anxiety, Panic attacks Musculoskeletal: Chronic back pain Derm: None - Past Surgical History Past Surgical History: Yes /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: section - Present Medications Home Medications: Ambulatory Orders Medication Instructions Recorded Confirmed Lamotrigine [Lamictal (Green)] 1 ea PO DAILY 12/24/15 05/06/16 hydrOXYzine HCL [Hydroxyzine HCl] 50 mg PO Q8H PRN #12 tablet 07/31/19 Hydrocortisone 1 applic TP BID #1 tube 08/08/19 FLUoxetine [PROzac] 40 mg PO DAILY 11/16/19 11/16/19 Guanfacine HCl 1 mg PO 11/16/19 Hydrocodone/Acetaminophen 1 each PO Q6H PRN #18 tablet 11/16/19 [Hydrocodon-Acetaminophen 5-325] Naproxen 500 mg PO BID #20 tablet 11/16/19 dexAMETHasone [Decadron] 4 mg PO DAILY #5 tablet 11/16/19 Albuterol Sulf [Ventolin Hfa 1 - 2 puffs INH Q4HR PRN #1 inhaler 01/02/20 Inhaler] Doxycycline Hyclate 100 mg PO BID #20 capsule 01/02/20 Hydrocodone/Acetaminophen 1 - 2 each PO Q6H PRN #14 tablet 01/02/20 [Hydrocodon-Acetaminophen 5-325] Albuterol Sulf [Ventolin Hfa 2 puffs INH QID #1 each 01/26/24 Inhaler] Cetirizine [ZyrTEC] 10 mg PO DAILY #15 tablet 01/26/24 Propranolol [Inderal] 10 mg PO DAILY #20 tablet 01/26/24 - Allergies Allergies/Adverse Reactions: Allergies Allergy/AdvReac Type Severity Reaction Status Date / Time clindamycin Allergy Itching Verified 01/26/24 13:06 Penicillins Allergy Unknown Verified 01/26/24 13:06 - Social History Does the pt smoke?: No Smoking Status: Never smoker Does the pt drink ETOH?: No Does the pt have substance abuse?: No - Immunizations Immunizations are current?: No Immunizations: No immun - POLST Patient has POLST: No PD ED PE NORMAL - Vitals Vital signs reviewed: Yes (noted to be tachycardic here that she attributes to anxious.) - General General: Alert and oriented X 3, No acute distress, Well developed/nourished - Neck Neck: Supple, no meningeal sign, No adenopathy - Cardiac Cardiac: No murmur. No: RRR (mild tachycardia) - Respiratory Respiratory: No respiratory distress, Clear bilaterally - Abdomen Abdomen: Soft, Non tender - Derm Derm: Normal color, Warm and dry - Extremities Extremities: Normal ROM s pain, No edema, Other (no noted tenderness in calf nor popliteal area. ) - Neuro Neuro: Alert and oriented X 3, No motor deficit Results - Vitals Vitals: Vital Signs - 24 hr 01/26/24 01/26/24 01/26/24 13:06 14:49 17:00 Temperature 36.8 C Heart Rate 96 97 96 Respiratory 16 18 18 Rate Blood Pressure 140/73 H 131/76 H O2 Saturation 100 100 Oxygen O2 Source Room air - Labs Labs: Laboratory Tests 01/26/24 14:40 Serum HCG, Qual NEGATIVE - Rads (name of study) chest CTA Relevant Findings:: Prelim report reviewed (timing off with the contrast. No central emboli noted. ) PD Medical Decision Making - ED course Complexity details: considered differential, d/w patient ED course: The patient has had 1 or 2 months of activity related dyspnea and at times a feeling of fast heart rate. She will feel her heart rate being fast actually more so in the morning and when trying to rest. No chest pain per se. She had gone to her primary care. Had a blood count which did not show any anemia per se. No medications attempted. Continued with symptoms and actually worse the last several days to a week. Some runny nose and mild cough. No wheezing per se. The patient was seen at walk-in this morning. Had chemistry panel, CBC, thyroid screen and also a D-dimer test. The D-dimer came slightly above normal at 286. Referred to the ER for CT of the chest. The patient does take control. She is not a smoker. She has not noticed any swelling or pain in her legs. She was noted to be tachycardic at the clinic and she states she often is especially when anxious. Given the workup through now without obvious answer and referred here for evaluation of the lungs, it is reasonable to do the imaging of the chest. This will also give a better view of the lung parenchyma. If that were to be normal, at this point I would try allergies and reactive airway disease as a possibility given her symptoms and time of year. I would empirically try some antihistamines and albuterol inhaler. For her heart rate and stated episodes of anxiety, consideration could be a low-dose propranolol as well. She had been a patient of the [facility] but then went off [place] when providers were not available. She would like to try to get back to [place]. Departure - Departure Disposition: 01 Home, Self Care Clinical Impression: Right leg pain Dyspnea Qualifiers: Dyspnea type: dyspnea on exertion Qualified Code(s): R06.09 - Other forms of dyspnea Condition: Stable Record reviewed to determine appropriate education?: Yes Instructions: ED Dyspnea Shortness of Breath Prescriptions: Propranolol [Inderal] 10 mg PO DAILY #20 tablet Albuterol Sulf [Ventolin Hfa Inhaler] 2 puffs INH QID #1 each Cetirizine [ZyrTEC] 10 mg PO DAILY #15 tablet Forms: PCP List Discharge Date/Time: 01/26/24 19:06
[2024-01-26 15:07] LABS: HCG,QUALITATIVE BLOOD NEGATIVE
[2024-01-26] MEDS: iohexoL-300 100 ML VIAL IVP ONE (15:36)
--- NOTE | 2024-01-26 16:00 | CT Report ---
PROCEDURE: Angio Chest INDICATIONS: dyspnea, elevated d-dimer CONTRAST: [id number] 100ml TECHNIQUE: After the administration of intravenous contrast, 2 mm axial images were acquired from the pulmonary apices to the posterior costophrenic angles during the arterial phase. In addition, 1 mm lung kernel and 5 mm soft tissue kernel reconstructions were performed. 3-dimensional coronal oblique maximum int ensity projection (MIP) reformats, 8 mm axial MIP, and 5 mm coronal and sagittal MPR reformats were t hen performed through the thorax. For radiation dose reduction, the following was used: automated exp osure control, adjustment of mA and/or kV according to patient size. COMPARISON: Chest x-ray 01/02/2020 FINDINGS: Image quality: Nondiagnostic for detection of emboli secondary to contrast injection appearance withi n pulmonary arteries distal to the main left and right branches. Large vessels: No filling defects within the opacified pulmonary arteries, accounting for motion and contrast timing. No evidence of acute aortic syndrome or aortic aneurysm. Lungs and pleura: No consolidation. No pleural effusions. No pneumothorax. No suspicious pulmonary n odules which require follow up. Mediastinum: Heart size is normal. No pericardial effusion. No large vessel abnormality. No mediastin al adenopathy by size criteria. Chest wall and lower neck: Thyroid is unremarkable. No axillary or supraclavicular adenopathy by size . Bones: No aggressive osseous abnormality. Upper Abdomen: Unremarkable. IMPRESSION: No central pulmonary embolism. Reviewed by: Kami Castellanos MD on 01/26/2024 3:58 PM PDT Approved by: Kami Castellanos MD on 01/26/2024 3:58 PM PDT Station ID: [id number]
--- NOTE | 2024-01-26 16:14 | ED Physician Documentation ---
ED Addendum - Addendum Addendum: 01/26/24 16:[address] Cruz at shift change. Briefly a 28-year-old woman sent from the clinic with shortness of breath and some chronic tachycardia to rule out PE. Dr. Cruz felt it was most likely reactive airways disease but signed out to me pending CT pulmonary angiogram to rule out PE. The CT pulmonary angiogram was grossly negative but nondiagnostic for small arteries. In contrast to Dr. Cruz's note she says she has been having right calf pain for a few days and so seems reasonable to duplex the legs, if positive could anticoagulate, if negative, probably could safely treat for alternative causes of her symptoms. 01/26/24 20:00 DOWNTIME CHARTING: Subsequently verbal report from the honey producer was that theUltrasound of her legs was negative for any DVTs or superficial thrombosis. As such I believe the chance of PE is very low. She was given prescriptions for Zyrtec 10 mg p.o. nightly #30 and albuterol MDI 1 to 2 puffs every 4 hours as needed dyspnea #1. Disposition: Discharged home Condition: Stable 01/26/24 20:01 Diagnosis: 1. Dyspnea 2. Right leg pain
[2024-01-26 17:12] VITALS: BP 131/76
--- NOTE | 2024-01-26 20:27 | Ultrasound Report ---
PROCEDURE: Duplex Ext Veins Bilateral INDICATIONS: Charbel Posey MD TECHNIQUE: Real-time imaging, as well as color and pulse Doppler interrogation, were performed of the deep veins of both legs from the inguinal ligament to the popliteal fossa. Attempted visualization of the calf veins was performed. COMPARISON: 05/06/2016 FINDINGS: The deep veins are normally compressible, and free of intraluminal thrombus. Color and pu lse Doppler demonstrate normal phasic intravascular flow. There is normal augmentation response to d istal compression maneuver. IMPRESSION: No deep venous thrombosis of the visualized lower extremities. Reviewed by: Rock Armstrong MD on 01/26/2024 8:26 PM PDT Approved by: Rock Armstrong MD on 01/26/2024 8:26 PM PDT Station ID: [id number]
== END 2024-01-26 19:06 | disposition home or self-care (01) ==
LOC: ED 12:58
DX: M79.604 Pain in right leg (principal); R06.09 Other forms of dyspnea
CPT/HCPCS: 36415; 71275; 80053; 82728; 83540; 84443; 84466; 84703; 85025; 85379; 93970; 94640; 94664; 96360; 99284; Q9967

== ENCOUNTER 2024-06-07 07:45 | Outpatient (CLI) | payer MEDICAID ==
[2024-06-07 11:56] LABS: BASOPHILS # (AUTO) 0.1 10^3/uL (0.0-0.1); BASOPHILS % (AUTO) 0.9 %; EOSINOPHILS # (AUTO) 0.1 10^3/uL (0.0-0.7); EOSINOPHILS % (AUTO) 0.9 %; HCT - HEMATOCRIT 41.2 % (37.0-47.0); HGB - HEMOGLOBIN 13.2 g/dL (12.0-16.0); LYMPHOCYTES # (AUTO) 1.6 10^3/uL (1.5-3.5); LYMPHOCYTES % (AUTO) 27.8 %; MEAN CORPUSCULAR HEMOGLOBIN 29.4 pg (27.0-31.0); MEAN CORPUSCULAR VOLUME 91.8 fL (81.0-99.0); MEAN PLATELET VOLUME 11.5 fL (7.9-10.8); MONOCYTES # (AUTO) 0.6 10^3/uL (0.0-1.0); MONOCYTES % (AUTO) 10.8 %; NEUTROPHILS # (AUTO) 3.3 10^3/uL (1.5-6.6); NEUTROPHILS % (AUTO) 59.4 %; PLT - PLATELET COUNT 263 10^3/uL (130-450); RED BLOOD COUNT 4.49 10^6/uL (4.20-5.40); RED CELL DISTRIBUTION WIDTH 12.1 % (12.0-15.0); WHITE BLOOD COUNT 5.6 x10^3/uL (4.8-10.8)
[2024-06-07 12:55] LABS: FERRITIN 14.4 ng/mL (11.0-306.8)
== END 2024-06-07 08:00 | disposition home or self-care (01) ==
LOC: LAB.N 07:45
PROVIDERS: ATTEND Physician Assistant Medical
DX: D50.9 Iron deficiency anemia, unspecified (principal)
CPT/HCPCS: 36415; 82728; 83540; 84466; 85025